=== PATIENT | male | born 1960 | race Caucasian/White ===

== ENCOUNTER 2016-11-19 13:12 | Emergency (ER) | payer OTHER ==
[~2016-11-19] VITALS: Ht 172.7 cm; Wt 92.7 kg
[2016-11-19 14:49] LABS: BASOPHIL % 0.4 % (0-2); PLATELET COUNT 235 x10^3mcL (130-400); RED CELL DISTRIBUTION WIDTH 13.6 % (11.5-14.5)
[2016-11-19 15:06] LABS: CALCIUM 8.9 mg/dL (8.5-10.1); CARBON DIOXIDE 27.2 mmol/L (21-32); CREATININE SERUM 1.5 mg/dL (0.7-1.3); POTASSIUM SERUM 3.4 mmol/L (3.5-5.1)
[2016-11-19 15:12] LABS: ALBUMIN 3.6 g/dL (3.4-5.0); BILIRUBIN TOTAL 0.46 mg/dL (0.20-1.00); C REACTIVE PROTEIN 3.7 mg/dL (<=0.9); TOTAL PROTEIN, SERUM 7.4 g/dL (6.4-8.2); URIC ACID 6.9 mg/dL (3.5-7.2)
[2016-11-19 15:38] LABS: ERYTHROCYTE SED RATE 29 mm/hr (0-20)
[2016-11-19 16:28] VITALS: BP 147/90
== END 2016-11-19 16:28 | disposition home or self-care (01) ==
LOC: ED 13:12
PROVIDERS: Emergency Medicine
DX: M25.572 Pain in left ankle and joints of left foot (principal); M25.571 Pain in right ankle and joints of right foot; G47.00 Insomnia, unspecified
CPT/HCPCS: 36415

== ENCOUNTER 2018-10-12 10:17 | Emergency (ER) | payer OTHER ==
[~2018-10-12] VITALS: Ht 172.7 cm; Wt 87.5 kg
[2018-10-12 10:22] VITALS: BP 146/106; Ht 172.7 cm; Wt 87.5 kg
== END 2018-10-12 11:08 | disposition home or self-care (01) ==
LOC: ED 10:17
DX: G89.29 Other chronic pain (principal); M54.5 Low back pain; M51.36 Other intervertebral disc degeneration, lumbar region; I10 Essential (primary) hypertension; E11.9 Type 2 diabetes mellitus without complications; Z76.0 Encounter for issue of repeat prescription
CPT/HCPCS: J1885